=== PATIENT | female | born 1960 | race Caucasian/White ===

== ENCOUNTER 2019-06-03 10:30 | Inpatient (IN) | payer MEDICARE, OTHER ==
[~2019-06-03] VITALS: Ht 160 cm; Wt 72.1 kg
[~2019-06-03 10:30] MED LIST: CYCLOBENZAPRINE5 MG PO; FOSAMAX70 MG PO; NEXIUM40 MG PO; TYLENOL WITH C1 EACH PO; ULTRAM 50MG50 MG PO
--- OUTSIDE RECORDS SUMMARY | 2019-06-03 10:32 | XMS REPORT | Clinical Summary ---
Author Author [facility] Organization [facility] Address Unknown Phone Unavailable Care Team Providers Care Filing Machine Operator Name Role Phone Javier Peoples DO PCP Allergies Comments Active Allergy Reactions Severity Noted Date Iodine 05/03/2019 Diazepam 05/03/2019 Medications End Date Status Medication Sig Dispensed Refills Start Date 06/02/2019 dicyclomine (BENTYL) 20 Take 1 tablet 20 tablet 0 30/201 mg tablet (20 mg total) 9 by mouth 2 (two) times a day for 30 days. 05/10/2019 amoxicillin (AMOXIL) 500 Take 1 14 capsule 0 30/201 MG capsule capsule (500 9 mg total) by mouth 2 (two) times a day for 7 days. 05/08/2019 acetaminophen-codeine Take 1-2 15 tablet 0 05/03/201 (TYLENOL WITH CODEINE #3) tablets by 9 300-30 mg per tablet mouth every 6 (six) hours as needed for moderate pain for up to 5 days. Active Problems Not on file Encounters Care Team Description Date Type Specialty Levi Christopher MD Abdominal pain, unspecified abdominal location (Primary Dx); Elevated hemidiaphragm; Hiatal hernia; Atypical chest pain; Leukocytosis, unspecified type 05/03/2019 Emergency Emergency Medicine 05/03/2019 Travel after 06/02/2018 Social History Date Tobacco Use Types Packs/Day Years Used Current Every Day Smoker Cigarettes 2 Smokeless Tobacco: Never Used Drinks/Week oz/Week Comments Alcohol Use Never Alcohol Habits Answer Date Recorded How often do you have a drink containing alcohol? Never 05/03/2019 How many drinks containing alcohol do you have on Not asked a typical day when you are drinking? How often do you have six or more drinks on one Not asked occasion? Sex Assigned at Date Recorded Not on file Industry Job Start Date Occupation Not on file Not on file Not on file Travel End Travel History Travel Start No recent travel history available. Last Filed Vital Signs Reading Time Taken Comments Vital Sign 124/58 05/03/2019 7:09 PM CDT Blood Pressure 97 05/03/2019 7:09 PM CDT Pulse 37.3 C (99.2 F) 05/03/2019 7:09 PM CDT Temperature 22 05/03/2019 7:09 PM CDT Respiratory Rate 93% 05/03/2019 7:09 PM CDT Oxygen Saturation - - Inhaled Oxygen Concentration 76.2 kg (168 lb) 05/03/2019 12:18 PM CDT Weight 160 cm (5' 3") 05/03/2019 12:18 PM CDT Height 29.76 05/03/2019 12:18 PM CDT Body Mass Index Plan of Treatment Health Maintenance Due Date Last Done Comments CERVICAL CANCER SCREENING 1982 BREAST CANCER SCREENING 2011 COLONOSCOPY SCREENING 2011 SHINGLES VACCINES (#1) 2011 INFLUENZA VACCINE 05/05/2019 Procedures Comments Procedure Name Priority Date/Time Associated Diagnosis TROPONIN Timed 05/03/2019 4:31 PM CDT ECG ED PRELIMINARY Routine 05/03/2019 INTERPRETATION 2:18 PM CDT XR CHEST 1 VW STAT 05/03/2019 1:50 PM CDT ESTIMATED GFR STAT 05/03/2019 12:58 PM CDT B NATRIURETIC PEPTIDE STAT 05/03/2019 12:58 PM CDT TROPONIN STAT 05/03/2019 12:58 PM CDT COMPREHENSIVE METABOLIC STAT 05/03/2019 PANEL 12:58 PM CDT HC COMPLETE BLD COUNT STAT 05/03/2019 W/AUTO DIFF 12:58 PM CDT ECG 12-LEAD STAT 05/03/2019 12:51 PM CDT after 06/02/2018 Results * Troponin (05/03/2019 4:31 PM CDT) Only the most recent of 2 results within the time period is included. Troponin <0.006 0.000 - 0.040 ng/mL [facility] Comment: [facility] changed methodology effective: HOSPITAL 02/08/2019 at 10:00 am The new method has a 99th percentile cutoff of 0.040 ng/mL Specimen Plasma specimen Performing Organization Address City/[facility]/Zipcode Phone Number [facility] DEPARTMENT OF [address] [place] [address] PATHOLOGY AND GENOMIC MEDICINE [facility] [address] [facility] [place] [address] HOSPITAL * ECG ED Preliminary Interpretation - Not an Order (05/03/2019 2:18 PM CDT) Narrative Performed At Levi Christopher MD 05/04/2019 10:36 AM ECG ED Preliminary Interpretation - Not an Order Performed by: Levi Christopher MD Authorized by: Levi Christopher MD ECG reviewed by ED Physician in the absence of a official court interpreter: yes Rate: ECG rate:95 ECG rate assessment: normal Rhythm: Rhythm: sinus rhythm QRS: QRS axis:Normal QRS intervals:Normal ST segments: ST segments:Normal T waves: T waves: normal * XR Chest 1 Vw (05/03/2019 1:50 PM CDT) Specimen Narrative Performed At EXAMINATION:XR CHEST 1 VW [facility] CLINICAL HISTORY:Shortness of breath, chest pain COMPARISON:None. IMPRESSION: There is elevation of the left hemidiaphragm, potentially reflecting diaphragmatic eventration or paralysis. The lungs and pleural spaces are clear.The cardiomediastinal silhouette is within normal limits.There is no significant skeletal finding. [facility]-[id number] Procedure Note Hm Interface, Radiology Results Incoming - 05/03/2019 2:31 PM CDT EXAMINATION: XR CHEST 1 VW CLINICAL HISTORY: Shortness of breath, chest pain COMPARISON: None. IMPRESSION: There is elevation of the left hemidiaphragm, potentially reflecting diaphragmatic eventration or paralysis. The lungs and pleural spaces are clear. The cardiomediastinal silhouette is within normal limits. There is no significant skeletal finding. [facility]-[id number] Performing Organization Address City/[facility] Phone Number [facility] [address] [place] [address] * Estimated GFR (05/03/2019 12:58 PM CDT) Pathologist [facility] Estimated GFR 62 mL/min/1.73 m2 [place] Comment: [facility] G1 >=90 Normal or high G2 60-89Mildly decreased [id number] Mildly to moderately decreased [id number] Moderately to severely decreased G4 15-29Severely decreased G5 <15Kidney failure The eGFR was calculated using the Chronic Kidney Disease Epidemiology Collaboration (CKD-EPI) equation. Interpretation is based on recommendations of the National Kidney Foundation-Kidney Disease Outcomes Quality Initiative (NKF-KDOQI) published in 2014. Specimen Plasma specimen Performing Organization Address City/State/Zipcode Phone Number [facility] DEPARTMENT OF [address] [facility] [place] [address] PATHOLOGY AND GENOMIC MEDICINE [facility] [address] * CBC with platelet and differential (05/03/2019 12:58 PM CDT) [facility] WBC 13.5 (H) 4.2 - 11.0 k/uL [facility] RBC 4.34 4.04 - 5.86 m/uL [facility] HGB 14.0 11.5 - 15.3 g/dL [facility] HCT 42.0 34.0 - 45.0 % [facility] MCV 96.8 80.0 - 98.0 fL [facility] MCH 32.3 27.0 - 34.0 pg [facility] MCHC 33.3 31.5 - 36.5 g/dL [facility] RDW - SD 48.1 37.0 - 51.0 fL [facility] MPV 10.0 7.4 - 10.4 fL [facility] Platelet count 197 150 - 400 k/uL [facility] Nucleated RBC 0.00 /100 WBC [facility] Neutrophils 86.0 (H) 36.0 - 66.0 % [facility] Lymphocytes 9.2 (L) 24.0 - 44.0 % [facility] Monocytes 4.2 0.0 - 6.0 % [facility] Eosinophils 0.0 0.0 - 6.0 % [facility] Basophils 0.2 0.0 - 1.2 % [facility] Immature 0.4 0.0 - 1.0 % [place] granulocytes [facility] Specimen Blood Performing Organization Address City/State/[place] [address] PATHOLOGY AND GENOMIC MEDICINE [address] * B natriuretic peptide (05/03/2019 12:58 PM CDT) [facility] BNP 40 0 - 100 pg/mL [facility] Specimen Blood Performing Organization Address City/[facility] Services[facility] [place] [address] PATHOLOGY AND GENOMIC MEDICINE [address] * Comprehensive metabolic panel (05/03/2019 12:58 PM CDT) [facility] Sodium 130 (L) 135 - 150 mEq/L [facility] Potassium 4.3 3.5 - 5.0 mEq/L [facility] Chloride 92 (L) 98 - 112 mEq/L [facility] CO2 25 24 - 31 mmol/L [facility] Anion gap 13@ANIO 7 - 15 mEq/L [facility] BUN 12 7 - 18 mg/dL [facility] Creatinine 1.00 (H) 0.50 - 0.90 mg/dL [facility] Glucose 122 (H) 65 - 100 mg/dL [facility] Calcium 10.2 8.3 - 10.2 mg/dL [facility] Protein 8.2 6.3 - 8.3 g/dL [facility] Albumin 4.1 3.5 - 5.0 g/dL [facility] A/G ratio 1.0 0.7 - 3.8 [facility] Alkaline 120 (H) 0 - 104 U/L [place] phosphatase [facility] AST 22 10 - 35 U/L [facility] ALT 31 5 - 50 U/L [facility] Total bilirubin 1.0 0.2 - 1.2 mg/dL [facility] Specimen Plasma specimen Performing Organization Address City/State/Zipcode Phone Number [facility] DE[facility] OF [address] [place] [address] PATHOLOGY AND GENOMIC MEDICINE [facility] [address] [facility] [place] [id number] [facility] * ECG 12 lead (05/03/2019 12:51 PM CDT) Ventricular 95 [facility] MUSE rate Atrial rate 95 [facility] MUSE GA interval 132 [facility] QRSD interval 78 [facility] QT interval 344 [facility] QTC interval 432 [facility] P axis 1 69 [facility] QRS axis 1 31 [facility] M[facility] T wave axis 61 [facility] EKG impression Normal sinus rhythm-Normal [facility] MUSE ECG-No previous ECGs available- Specimen Narrative Performed At Performing Organization Address City/[facility]code Phone Number [facility] MUSE [address] [place] [address] after 06/02/2018 Insurance Type Payer Benefit Subscriber ID Effective Phone Address Plan / Dates Group HMO [employer] AMER[employer] xxxxxxxxx 2015-P DUAL resent OPTIONS STARPLUS MMP Advance Directives For more information, please contact: [phone] Patient Screening Tech Explanation Type Date Recorded Advance Directives, 05/03/2019 3:17 PM Living Will and Medical Power of Adult Education Manager
[2019-06-03 11:16] LABS: BASOPHILS % 0.1 % (0.0-1.0); HEMATOCRIT 37.9 % (34.2-44.1); HEMOGLOBIN 12.5 g/dL (12.0-16.0); LYMPHOCYTES # (AUTO) 0.4 (1.0-3.2); LYMPHOCYTES % 3.5 % (18.0-39.1); MEAN CORPUSCULAR HEMOGLOBIN 32.5 pg (28-32); MEAN CORPUSCULAR VOLUME 98.4 fL (81-99); MONOCYTES # (AUTO) 0.3 (0.2-0.8); MONOCYTES % 2.6 % (4.4-11.3); NEUTROPHILS # (AUTO) 10.7 (2.1-6.9); NEUTROPHILS % 93.5 % (38.7-80.0); PLATELET COUNT 317 x10e3/uL (140-360); RED BLOOD COUNT 3.85 x10e6/uL (3.6-5.1); RED CELL DISTRIBUTION WIDTH 13.6 % (11.7-14.4)
[2019-06-03 11:50] LABS: ALANINE AMINOTRANSFERASE 103 IU/L (0-55); ALBUMIN 3.5 g/dL (3.5-5.0); ALBUMIN/GLOBULIN RATIO 0.9 (0.8-2.0); ALKALINE PHOSPHATASE 636 IU/L (40-150); ANION GAP 17.2 mmol/L (8-16); BLOOD UREA NITROGEN 6 mg/dL (7-26); BUN/CREATININE RATIO 8 (6-25); CALCIUM 10.1 mg/dL (8.4-10.2); CARBON DIOXIDE 25 mmol/L (22-29); CHLORIDE 98 mmol/L (98-107); CREATININE, SERUM 0.78 mg/dL (0.57-1.11); EST GLOMERULAR FILTRATION RATE > 60 ML/MIN (60-); GLUCOSE 119 mg/dL (74-118); POTASSIUM 3.2 mmol/L (3.5-5.1); SODIUM 137 mmol/L (136-145)
--- NOTE | 2019-06-03 12:04 | Diagnostic Imaging Report ---
Chest, 1 view, 06/03/2019. History: Chest pain. Comparison: None available. Findings: The cardiomediastinal silhouette and pulmonary vasculature are within normal limits for a portable exam. There is elevation of the left hemidiaphragm with air-filled stomach noted. There is no focal consolidation or pleural effusion. There are no acute osseous or soft tissue abnormalities. Impression: No acute cardiopulmonary abnormality. Signed by: Kevon Hamlin on 06/03/2019 12:01 PM
[2019-06-03 13:11] LABS: BILIRUBIN,URINE SMALL (NEGATIVE); CLARITY,URINE SL CLOUDY (CLEAR); COLOR,URINE YELLOW (YELLOW); KETONES,URINE NEGATIVE (NEGATIVE); LEUKOCYTE ESTERASE ,URINE NEGATIVE (NEGATIVE); NITRITE,URINE POSITIVE (NEGATIVE); PROTEIN,URINE DIPSTICK 1+ (NEGATIVE); URINE UROBILINOGEN 1 mg/dL (0.2 - 1)
[2019-06-03 13:28] LABS: BACTERIA,URINE MODERATE /HPF; EPITHELIAL CELLS,URINE MODERATE /LPF
[2019-06-03 13:41] LABS: CREATINE KINASE 172 IU/L (29-168); MAGNESIUM 1.7 MG/DL (1.3-2.1)
[2019-06-03] MEDS ORDERED: PANTOPRAZOLE 40 MG 10ML VIAL IV ONE (15:02)
[2019-06-03 15:05] LABS: CHOL/HDL RATIO 3.9 (3.0-3.6)
[2019-06-03] MEDS: SODIUM CHLORIDE 0.9% 1000ML 1,000 ML IV SCH ×2 (16:30→20:01)
--- NOTE | 2019-06-03 16:46 | Diagnostic Imaging Report ---
CT of the abdomen and pelvis, without contrast, 06/03/2019. History: Abdominal pain, pancreatitis. Comparison: None available. Technique: Multidetector CT scanning of the abdomen and pelvis was performed from the level of the lung bases to the inferior pubic rami without intravenous or oral contrast. Coronal and sagittal multiplanar reformations were obtained. RADIATION DOSE: Total DLP: 340 mGy*cm Dose modulation, iterative reconstruction, and/or weight based adjustment of the mA/kV was utilized to reduce the radiation dose to as low as reasonably achievable. Discussion: Examination is limited without contrast. Lung bases: There is bilateral subsegmental atelectasis. There is elevation of the left hemidiaphragm without focal hernia. Abdomen: Cholecystectomy clips are present. The liver, biliary tree, spleen, pancreas, adrenal glands, and kidneys are unremarkable. There may be minimal fat stranding anterior to the pancreas. There is no evidence of fluid collection. The abdominal aorta is mildly calcified but within normal limits for size. There is no bowel dilatation. The appendix is visualized and is normal. There is no evidence of adenopathy or free fluid. Pelvis: The bladder, uterus, and adnexa are unremarkable. Tubal ligation clips are present bilaterally. There is no evidence of free fluid or adenopathy. Bones and soft tissues: Degenerative changes are present throughout the lumbar spine without evidence of lytic or sclerotic lesion. Left hip erika and screw are present. IMPRESSION: 1. Findings supportive of mild pancreatitis. No evidence of pseudocyst. 2. Status post cholecystectomy. Otherwise unremarkable noncontrast exam. Signed by: Kevon Hamlin on 06/03/2019 4:43 PM
[2019-06-03] MEDS ORDERED: SODIUM CHLORIDE 0.9% 1000ML 1,000 ML IV SCH (17:00)
[2019-06-03] MEDS ORDERED: HYDROMORPHONE 1MG/1ML INJ IV PRN (17:00)
[2019-06-03] MEDS ORDERED: ONDANSETRON HCL INJ 2MG/ML 2ML 2 MG/ML VIAL IV PRN (17:00)
--- OUTSIDE RECORDS SUMMARY | 2019-06-03 17:59 | XMS REPORT | Clinical Summary ---
Author Author [facility] Address Unknown Phone Unavailable Care Team Providers Care Gas Operations Analyst Name Role Phone Javier Peoples DO PCP [...] included. Troponin <0.006 0.000 - 0.040 ng/mL [facility] Comment: [facility] changed methodology effective: HOSPITAL 02/08/2019 at 10:00 am The new method has a 99th percentile cutoff of 0.040 ng/mL Specimen Plasma specimen Performing Organization Address City/[facility]/Zipcode Phone Number [facility] [place] [address] [place] [address] PATHOLOGY AND GENOMIC MEDICINE [facility] [address] [facility] [place] [address] HOSPITAL * ECG ED Preliminary Interpretation - Not an Order (05/03/2019 2:18 PM CDT) Narrative Performed At Levi Christopher MD 05/04/2019 10:36 AM ECG ED Preliminary Interpretation - Not an Order Performed by: Levi Christopher MD Authorized by: Levi Christopher MD ECG reviewed by ED Physician in the absence of a market reporter: yes Rate: ECG rate:95 ECG rate assessment: [...] normal limits.There is no significant skeletal finding. [id number] Procedure Note Hm Interface, Radiology Results Incoming - 05/03/2019 2:31 PM CDT EXAMINATION: XR CHEST 1 VW CLINICAL HISTORY: Shortness of breath, chest pain COMPARISON: None. IMPRESSION: There is elevation of the left hemidiaphragm, potentially reflecting diaphragmatic eventration or paralysis. The lungs and pleural spaces are clear. The cardiomediastinal silhouette is within normal limits. There is no significant skeletal finding. [id number] Performing Organization Address City/[facility] Phone Number [facility] [address] [place] [address] * Estimated GFR (05/03/2019 12:58 PM CDT) Pathologist [facility] Estimated GFR 62 mL/min/1.73 m2 [facility] Comment: [facility] G1 >=90 Normal or high G2 60-89Mildly decreased [id number] Mildly to moderately decreased S4l88-65 Moderately to severely decreased G4 15-29Severely decreased G5 <15Kidney failure The eGFR was calculated using the Chronic Kidney Disease Epidemiology Collaboration (CKD-EPI) equation. Interpretation is based on recommendations of the National Kidney Foundation-Kidney Disease Outcomes Quality Initiative (NKF-KDOQI) published in 2014. Specimen Plasma specimen Performing Organization Address City/State/Zipcode Phone Number [facility] [place] [address] [facility] [place] [address] PATHOLOGY AND GENOMIC MEDICINE [facility] [address] * CBC with platelet and differential (05/03/2019 12:58 PM CDT) [facility] WBC 13.5 (H) 4.2 - 11.0 k/uL [facility] RBC 4.34 4.04 - 5.86 m/uL [facility] HGB 14.0 11.5 - 15.3 g/dL [facility] HCT 42.0 34.0 - 45.0 % [facility] MCV 96.8 80.0 - 98.0 fL [facility] MCH 32.3 27.0 - 34.0 pg [facility] MCHC 33.3 31.5 - 36.5 g/dL [facility] RDW - SD 48.1 37.0 - 51.0 fL [facility] MPV 10.0 7.4 - 10.4 fL [facility] Platelet count 197 150 - 400 k/uL [facility] Nucleated RBC 0.00 /100 WBC [facility] Neutrophils 86.0 (H) 36.0 - 66.0 % [facility] Lymphocytes 9.2 (L) 24.0 - 44.0 % [facility] Monocytes 4.2 0.0 - 6.0 % [facility] Eosinophils 0.0 0.0 - 6.0 % [facility] Basophils 0.2 0.0 - 1.2 % [facility] Immature 0.4 0.0 - 1.0 % [facility] granulocytes [facility] Specimen Blood Performing Organization Address City/State/[place] [address] PATHOLOGY AND GENOMIC MEDICINE [address] * B natriuretic peptide (05/03/2019 12:58 PM CDT) [facility] BNP 40 0 - 100 pg/mL [facility] Specimen Blood Performing Organization Address City/[facility] [place] [address] PATHOLOGY AND GENOMIC MEDICINE [address] * Comprehensive metabolic panel (05/03/2019 12:58 PM CDT) [facility] Sodium 130 (L) 135 - 150 mEq/L [facility] Potassium 4.3 3.5 - 5.0 mEq/L [facility] Chloride 92 (L) 98 - 112 mEq/L [facility] CO2 25 24 - 31 mmol/L [facility] Anion gap 13@ANIO 7 - 15 mEq/L [facility] BUN 12 7 - 18 mg/dL [facility] Creatinine 1.00 (H) 0.50 - 0.90 mg/dL [facility] Glucose 122 (H) 65 - 100 mg/dL [facility] Calcium 10.2 8.3 - 10.2 mg/dL [facility] Protein 8.2 6.3 - 8.3 g/dL [facility] Albumin 4.1 3.5 - 5.0 g/dL [facility] A/G ratio 1.0 0.7 - 3.8 [facility] Alkaline 120 (H) 0 - 104 U/L [facility] phosphatase [facility] AST 22 10 - 35 U/L [facility] ALT 31 5 - 50 U/L [facility] Total bilirubin 1.0 0.2 - 1.2 mg/dL [facility] Specimen Plasma specimen Performing Organization Address City/State/Zipcode Phone Number [facility] OF [address] [place] [address] PATHOLOGY AND GENOMIC MEDICINE [facility] [address] [facility] [place] [id number] [facility] * ECG 12 lead (05/03/2019 12:51 PM CDT) Ventricular 95 [facility] MUSE rate Atrial rate 95 [facility] MUSE WA interval 132 [facility] M[facility] QRSD interval 78 [facility] M[facility] QT interval 344 [facility] M[facility] QTC interval 432 [facility] M[facility] P axis 1 69 [facility] M[facility] QRS axis 1 31 [facility] M[facility] T wave axis 61 [facility] EKG impression Normal sinus rhythm-Normal [facility] MUSE ECG-No previous ECGs available- Specimen Narrative Performed At Performing Organization Address City/[facility] Phone Number [facility] MUSE [address] [place] [address] after 06/02/2018 Insurance Type Payer Benefit Subscriber ID Effective Phone Address Plan / Dates Group HMO [employer] AMER[employer] xxxxxxxxx 2015-P DUAL resent OPTIONS STARPLUS MMP Advance Directives For more information, please contact: [phone] Patient Director Audience Marketing Explanation Type Date Recorded Advance Directives, 05/03/2019 3:17 PM Living Will and Medical Power of Armoured Car Escort
--- NOTE | 2019-06-03 19:05 | NUR ---
WALKING ROUNDS PERFORMED, RECEIVED PT LAYING SEMI FOWLERS IN BED, AAOX3, RR EVEN AND NON-LABORED, ON ROOM AIR. NO S/SX OF DISTRESS NOTED. LEFT PT LAYING SEMI FOWLERS IN BED, BED IN LOW LOCKED POSITION, SIDE RAILS UPX2, CALL LIGHT AND PHONE WITHIN REACH.
[2019-06-03] MEDS ORDERED: LISINOPRIL2.5 MG PO (19:06)
[2019-06-03] MEDS ORDERED: RANITIDINE HCL150 M1 PO (19:06)
[2019-06-03] MEDS ORDERED: ASPIRIN81 MG PO (19:06)
[2019-06-03] MEDS ORDERED: COMBIVENT RESPIM4 GM IH (19:06)
[2019-06-03] MEDS ORDERED: PANTOPRAZOLE SO40 MG PO (19:06)
[2019-06-03] MEDS ORDERED: DICYCLOMINE HCL20 MG PO (19:06)
[2019-06-03] MEDS ORDERED: PROAIR HFA INH8.5 GM BLADIN (19:06)
[2019-06-03] MEDS ORDERED: CETIRIZINE HCL10 M1 (19:06)
[2019-06-03] MEDS ORDERED: ATORVASTATIN CA10 MG PO (19:06)
[2019-06-03] MEDS: CEFTRIAXONE SOD 1 GM/NS 50 ML 50 ML IV SCH (20:01)
[2019-06-03 20:38] VITALS: BP 116/60
--- NOTE | 2019-06-03 20:38 | NUR ---
(R) AC IV PATENT BUT PT REPORTS SHE USES THIS ARM TO DO EVERYTHING AND THE PUMP WONT STOP BEEPING AND SHE CAN'T BE EXPECTED TO KEEP HER ARM STRAIGHT. NEW IV STARTED TO (L) FA 20G. FLUSHES WITHOUT DIFFICULTY, BLOOD RETURN NOTED.
[2019-06-03 20:42] VITALS: BP 116/60
[2019-06-03 21:57] VITALS: BP 116/60
[2019-06-04] VITALS (8 sets, daily range): BP systolic 121–142; BP diastolic 60–75
[2019-06-04 03:18] LABS: BASOPHILS % 0.1 % (0.0-1.0); EOSINOPHILS % 0.1 % (0.0-6.0); HEMATOCRIT 29.5 % (34.2-44.1); LYMPHOCYTES # (AUTO) 1.2 (1.0-3.2); LYMPHOCYTES % 13.8 % (18.0-39.1); MEAN CORPUSCULAR HEMOGLOBIN 32.5 pg (28-32); MEAN CORPUSCULAR HGB CONC 33.9 g/dL (31-35); MEAN CORPUSCULAR VOLUME 95.8 fL (81-99); MONOCYTES # (AUTO) 0.3 (0.2-0.8); MONOCYTES % 3.8 % (4.4-11.3); NEUTROPHILS # (AUTO) 6.8 (2.1-6.9); NEUTROPHILS % 81.8 % (38.7-80.0); PLATELET COUNT 253 x10e3/uL (140-360); RED BLOOD COUNT 3.08 x10e6/uL (3.6-5.1); RED CELL DISTRIBUTION WIDTH 13.7 % (11.7-14.4)
[2019-06-04 04:15] LABS: ANION GAP 12.3 mmol/L (8-16); BLOOD UREA NITROGEN 6 mg/dL (7-26); BUN/CREATININE RATIO 9 (6-25); CALCIUM 8.9 mg/dL (8.4-10.2); CARBON DIOXIDE 24 mmol/L (22-29); CHLORIDE 108 mmol/L (98-107); CREATININE, SERUM 0.66 mg/dL (0.57-1.11); EST GLOMERULAR FILTRATION RATE > 60 ML/MIN (60-); GLUCOSE 101 mg/dL (74-118); POTASSIUM 3.3 mmol/L (3.5-5.1); SODIUM 141 mmol/L (136-145)
[2019-06-04 04:21] LABS: ALBUMIN 2.6 g/dL (3.5-5.0); BILIRUBIN,DIRECT 1.5 mg/dL (0.0-0.5)
[2019-06-04 04:23] LABS: B-TYPE NATRIURETIC PEPTIDE2 74.9 pg/mL (0-100)
[2019-06-04] MEDS ORDERED: KETOROLAC TROMETHAMINE 30 MG/ML VIAL IV PRN (04:30)
[2019-06-04] MEDS ORDERED: MORPHINE SULFATE INJ 4 MG/ML INJ 1ML IV PRN (04:30)
[2019-06-04] MEDS ORDERED: HYDRALAZINE HCL 20 MG/ML VIAL IV PRN (04:45)
[2019-06-04] MEDS ORDERED: ACETAMINOPHEN 325 MG TAB PO PRN (04:45)
[2019-06-04 05:27] LABS: MAGNESIUM 1.8 MG/DL (1.3-2.1)
[2019-06-04] MEDS: CEFTRIAXONE SOD 1 GM/NS 50 ML 50 ML IV SCH ×2 (05:45→18:12)
[2019-06-04] MEDS: SODIUM CHLORIDE 0.9% 1000ML 1,000 ML IV SCH ×3 (05:45→20:42)
[2019-06-04 05:52] LABS: FREE T4 (FREE THYROXINE) 0.98 ng/dL (0.8-1.8)
[2019-06-04] MEDS ORDERED: PANTOPRAZOLE 40 MG 10ML VIAL IV SCH ×2 (06:00→09:00)
--- NOTE | 2019-06-04 06:07 | NUR ---
PAGE PLACED FOR MD TELLEZ CONCERNING CONSULTATION. WAITING FOR CALLBACK.
--- NOTE | 2019-06-04 06:58 | NUR ---
RECEIVED BEDSIDE SHIFT REPORT FROM CHANGE MANAGEMENT FACILITATOR RN, PT RESTING IN BED, IN STABLE CONDITION. CALL LIGHT WITHIN REACH. WILL CONTINUE TO MONITOR.
--- NOTE | 2019-06-04 07:00 | NUR ---
BEDSIDE SHIFT REPORT RECEIVED PT IN STABLE CONDITION , DENIES PAIN AT THIS TIME, CALL LIGHT IN REACH WILL CONTINUE TO MONITOR
[2019-06-04] MEDS: DICYCLOMINE HCL 20 MG TAB PO SCH ×2 (09:00→17:00)
[2019-06-04] MEDS: ASPIRIN 81 MG CHEW TAB PO SCH (09:00)
[2019-06-04] MEDS: LISINOPRIL 2.5 MG TAB PO SCH (09:00)
[2019-06-04] MEDS: IPRATROPIUM/ALBUTEROL SULFATE 4 GM INH INH SCH (09:00)
--- NOTE | 2019-06-04 15:25 | NUR ---
PAGED DR TELLEZ RE: PT REQUESTING ICE CHIPS AWAITING CALL BACK
--- NOTE | 2019-06-04 17:03 | NUR ---
PAGED DR TELLEZ AWAITING CALL BACK
--- NOTE | 2019-06-04 19:32 | NUR ---
WALKING ROUNDS PERFORMED, RECEIVED PT LAYING SEMI FOWLERS IN BED, AAOX3, RR EVEN AND NON-LABORED, ON ROOM AIR. PT REQUESTING ICE CHIPS EXPLAINED TO PT THAT THEY ARE NPO AND CAN NOT HAVE ANY BECAUSE OF PANCREATITIS DIAGNOSIS. PT REPORTS WHY HAS MD TELLEZ NOT COME TO SEE HER. EXPLAINED THAT MD TELLEZ PAGED MULTIPLE TIMES. PT ASKING IF A DIFFERENT DOCTOR COULD SEE HER. POC EXPLAINED THAT WILL DISCUSS GI CONSULT WITH MD ELIZALDE. LEFT PT LAYING SEMI FOWLERS IN BED, BED IN LOW LOCKED POSITION, SIDE RAILS UPX2, CALL LIGHT AND PHONE WITHIN REACH.
--- NOTE | 2019-06-04 19:41 | NUR ---
SPOKE WITH MD ELIZALDE CONCERNING GI CONSULT. MD Baljit LA CONSULTED.
--- NOTE | 2019-06-04 19:45 | NUR ---
SPOKE WITH MD Baljit LA CONCERNING CONSULTATION. NO NEW ORDERS RECEIVED.
[2019-06-04] MEDS: ATORVASTATIN 10 MG TAB PO SCH (19:54)
[2019-06-05] VITALS (7 sets, daily range): BP systolic 119–147; BP diastolic 63–77
--- NOTE | 2019-06-05 00:54 | Diagnostic Imaging Report ---
Exam: Left hip, single frontal view History: Prior to MRCP for planning Comparison: None. Findings: Jorge and screw construct related to operative fixation of a remote femoral neck/intertrochanteric fracture. No evidence of hardware loosening or failure. Femoral head projects appropriately over the acetabulum. Soft tissues unremarkable. Impression: Intact jorge and screw construct related to prior operative fixation of a proximal femoral fracture. Signed by: Dr. Himanshu Shetty M.D. on 06/05/2019 12:50 AM
[2019-06-05] MEDS: PANTOPRAZOLE 40 MG 10ML VIAL IV SCH ×3 (01:20→20:00)
[2019-06-05] MEDS: SODIUM CHLORIDE 0.9% 1000ML 1,000 ML IV SCH ×3 (03:27→22:38)
[2019-06-05 03:38] LABS: BASOPHILS % 0.1 % (0.0-1.0); EOSINOPHILS % 0.6 % (0.0-6.0); HEMATOCRIT 28.4 % (34.2-44.1); HEMOGLOBIN 9.9 g/dL (12.0-16.0); LYMPHOCYTES # (AUTO) 1.5 (1.0-3.2); LYMPHOCYTES % 21.2 % (18.0-39.1); MEAN CORPUSCULAR HEMOGLOBIN 33.8 pg (28-32); MEAN CORPUSCULAR HGB CONC 34.9 g/dL (31-35); MEAN CORPUSCULAR VOLUME 96.9 fL (81-99); MONOCYTES # (AUTO) 0.4 (0.2-0.8); MONOCYTES % 5.2 % (4.4-11.3); NEUTROPHILS # (AUTO) 5.2 (2.1-6.9); NEUTROPHILS % 72.5 % (38.7-80.0); PLATELET COUNT 232 x10e3/uL (140-360); RED BLOOD COUNT 2.93 x10e6/uL (3.6-5.1); RED CELL DISTRIBUTION WIDTH 13.8 % (11.7-14.4)
[2019-06-05 03:50] LABS: ALANINE AMINOTRANSFERASE 50 IU/L (0-55); ALBUMIN 2.4 g/dL (3.5-5.0); ALBUMIN/GLOBULIN RATIO 0.7 (0.8-2.0); ALKALINE PHOSPHATASE 397 IU/L (40-150); ANION GAP 14.3 mmol/L (8-16); BLOOD UREA NITROGEN 5 mg/dL (7-26); BUN/CREATININE RATIO 9 (6-25); CALCIUM 8.5 mg/dL (8.4-10.2); CARBON DIOXIDE 20 mmol/L (22-29); CHLORIDE 109 mmol/L (98-107); CREATININE, SERUM 0.55 mg/dL (0.57-1.11); EST GLOMERULAR FILTRATION RATE > 60 ML/MIN (60-); GLUCOSE 75 mg/dL (74-118); POTASSIUM 3.3 mmol/L (3.5-5.1); SODIUM 140 mmol/L (136-145)
[2019-06-05] MEDS: CEFTRIAXONE SOD 1 GM/NS 50 ML 50 ML IV SCH ×2 (05:57→18:04)
[2019-06-05] MEDS ORDERED: POTASSIUM CHLORIDE 20 MEQ TAB CR PO STA (07:00)
--- NOTE | 2019-06-05 07:03 | NUR ---
received shift change report from manufacturing supervisor 2nd shift nurse, pt resting in bed, respirations even and nonlabored, no s/s distress noted, call light within reach, will continue to monitor.
[2019-06-05] MEDS ORDERED: CEFDINIR300 MG PO (07:05)
[2019-06-05] MEDS ORDERED: SODIUM CHLORIDE 0.9% 100 ML 100 ML ONE (08:57)
[2019-06-05] MEDS ORDERED: GADOBENATE DIMEGLUMINE 1 ML IV ONE (08:58)
[2019-06-05] MEDS: LISINOPRIL 2.5 MG TAB PO SCH (09:00)
[2019-06-05] MEDS: IPRATROPIUM/ALBUTEROL SULFATE 4 GM INH INH SCH (09:00)
[2019-06-05] MEDS: DICYCLOMINE HCL 20 MG TAB PO SCH ×2 (09:00→17:00)
[2019-06-05] MEDS: ASPIRIN 81 MG CHEW TAB PO SCH (09:00)
--- NOTE | 2019-06-05 09:20 | NUR ---
clin tech arrived at pt bedside, taking pt to MRI. pt left in stable condition.
--- NOTE | 2019-06-05 10:35 | NUR ---
pt arrived from MRI, in stable condition. will continue to monitor.
--- NOTE | 2019-06-05 15:57 | Diagnostic Imaging Report ---
History: ^poss choledocholithiasis ^Y Comparison: CT abdomen/pelvis 06/03/2019. Technique: Multiplanar, multisequence images of the abdomen were obtained before and after the administration of 15 cc of gadolinium. 3D volume rendered reformation images of the biliary tree were performed. Findings: Images are motion degraded. MRCP: Intrahepatic ducts: No dilatation, beading or narrowing. Common Hepatic Duct: Measures 13 mm. No dilatation, beading or narrowing. Cystic Duct: Grossly normal Common Bile Duct: Measures approximately 7 mm. There is surrounding of the shoulders of the distal common bile duct at the ampulla. No intraluminal filling defect to suggest choledocholithiasis Pancreas Duct: No dilatation. Gallbladder: Absent. Liver: Mild steatosis. Calculated hepatic fat fraction is 6.1%. No evidence of mass. Spleen: Normal size and signal. No mass Pancreas: Normal T1 and T2 signal. No mass. Kidneys: No hydronephrosis. No mass Adrenal glands: No mass Lymph nodes: No enlarged abdominal or retroperitoneal lymph nodes. Bowel: Stomach and visualized portions of the small bowel and large bowel are normal in diameter with normal wall thickness. Peritoneum/Retroperitoneum: No free fluid or fluid collection. Pelvis: Visualized pelvic structures are normal. Lung bases: Eventration of the left diaphragm. Visualized portion of the mediastinum is normal. Bones: Normal marrow signal. No focal osseous lesions. Soft tissues: Unremarkable IMPRESSION: 1. Motion degraded exam. 2. Status post cholecystectomy with prominence of the common hepatic duct and common bile duct likely due to reservoir effect. No evidence of choledocholithiasis. 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 3. Mild steatosis. Thank you for your referral. Signed by: Dr. Ai Zuleta MD on 06/06/2019 11:47 PM
--- NOTE | 2019-06-05 16:00 | NUR ---
paged dr shelton re: [facility] results awaiting call back
--- NOTE | 2019-06-05 17:51 | NUR ---
paged dr fareed shelton re: [facility] results awaiting call back
--- NOTE | 2019-06-05 18:20 | NUR ---
spoke with dr shelton, new orders given
--- NOTE | 2019-06-05 18:25 | NUR ---
pts diet advanced to clears as per orders,tolerating well
--- NOTE | 2019-06-05 19:28 | NUR ---
report given to airplane tube builder rn, pt left in stable condition, denies pain call light in reach will continue to monitor
[2019-06-05] MEDS: ATORVASTATIN 10 MG TAB PO SCH (20:00)
[2019-06-06] MEDS ORDERED: LORATADINE 10 MG TAB PO PRN
[2019-06-06 00:39] VITALS: BP 128/67
--- NOTE | 2019-06-06 03:00 | NUR ---
(R) AC IV NOTED TO BE LEAKING. IV DISCONTINUED. CATHETER TIP INTACT. PRESSURE AND DRESSING APPLIED.
[2019-06-06 03:39] LABS: BASOPHILS % 0.2 % (0.0-1.0); EOSINOPHILS # (AUTO) 0.1 (0.0-0.4); EOSINOPHILS % 1.2 % (0.0-6.0); HEMATOCRIT 28.4 % (34.2-44.1); HEMOGLOBIN 9.6 g/dL (12.0-16.0); LYMPHOCYTES # (AUTO) 1.9 (1.0-3.2); LYMPHOCYTES % 29.8 % (18.0-39.1); MEAN CORPUSCULAR HEMOGLOBIN 32.8 pg (28-32); MEAN CORPUSCULAR HGB CONC 33.8 g/dL (31-35); MEAN CORPUSCULAR VOLUME 96.9 fL (81-99); MONOCYTES # (AUTO) 0.4 (0.2-0.8); MONOCYTES % 5.6 % (4.4-11.3); NEUTROPHILS # (AUTO) 4.1 (2.1-6.9); PLATELET COUNT 258 x10e3/uL (140-360); RED BLOOD COUNT 2.93 x10e6/uL (3.6-5.1); RED CELL DISTRIBUTION WIDTH 13.5 % (11.7-14.4)
[2019-06-06 03:53] LABS: ALANINE AMINOTRANSFERASE 39 IU/L (0-55); ALBUMIN 2.6 g/dL (3.5-5.0); ALKALINE PHOSPHATASE 377 IU/L (40-150); ANION GAP 11.2 mmol/L (8-16); BILIRUBIN,DIRECT 0.5 mg/dL (0.0-0.5); BLOOD UREA NITROGEN < 5 mg/dL (7-26); CARBON DIOXIDE 22 mmol/L (22-29); CHLORIDE 109 mmol/L (98-107); CREATININE, SERUM 0.59 mg/dL (0.57-1.11); EST GLOMERULAR FILTRATION RATE > 60 ML/MIN (60-); GLUCOSE 75 mg/dL (74-118); LIPASE 24 U/L (8-78); POTASSIUM 3.2 mmol/L (3.5-5.1); SODIUM 139 mmol/L (136-145)
[2019-06-06 03:57] LABS: BUN/CREATININE RATIO 8 (6-25)
[2019-06-06 04:32] LABS: FERRITIN 149.95 ng/mL (4.63-204.00)
[2019-06-06 05:28] VITALS: BP 126/67
[2019-06-06] MEDS: SODIUM CHLORIDE 0.9% 1000ML 1,000 ML IV SCH (05:43)
[2019-06-06] MEDS: CEFTRIAXONE SOD 1 GM/NS 50 ML 50 ML IV SCH (05:43)
--- NOTE | 2019-06-06 07:08 | NUR ---
RECEIVED PATIENT RESTING IN BED NO SIGNS OF DISTRESS. BED LOW, WHEELS LOCKED, SIDE RAILS X2. CALL LIGHT IN REACH WILL CONTINUE TO MONITOR.
[2019-06-06 08:00] VITALS: BP 120/72
[2019-06-06] MEDS: IPRATROPIUM/ALBUTEROL SULFATE 4 GM INH INH SCH (08:00)
[2019-06-06] MEDS: DICYCLOMINE HCL 20 MG TAB PO SCH (09:00)
[2019-06-06] MEDS: ASPIRIN 81 MG CHEW TAB PO SCH (09:16)
[2019-06-06] MEDS: PANTOPRAZOLE 40 MG 10ML VIAL IV SCH (09:16)
[2019-06-06] MEDS: LISINOPRIL 2.5 MG TAB PO SCH (09:16)
[2019-06-06 09:49] VITALS: BP 120/72
[2019-06-06 11:47] LABS: FOLATE 13.7 ng/mL (7.0-15.4)
[2019-06-06 11:55] VITALS: BP 118/67
[2019-06-06] MEDS ORDERED: POTASSIUM CHLORIDE 20 MEQ TAB CR PO ONE (13:15)
--- NOTE | 2019-06-06 13:21 | NUR ---
removed patients iv, catheter tip intact and pressure dressing applied
--- NOTE | 2019-06-06 13:31 | NUR ---
patient discharged from facility. patient gathered all personal belongings, discharge instructions and follow up information. left unit in wheelchair and went home via private auto. no signs of distress when leaving facility.
--- NOTE | 2019-06-07 03:35 | Discharge Summary ---
PRIMARY CARE PHYSICIAN: Judd Gage. CONSULTING PHYSICIANS: 1. Dr. Rodrigo You. 2. Dr. Nikos Ramos. CHIEF COMPLAINT: Pancreatitis. HOSPITAL COURSE: This is a 58-year-old female, who got admitted for complaints of epigastric pain associated with nausea that has been intermittent since about one month. She denies vomiting, dysuria or hematuria, no fever or chills reported. Her chest x-ray on arrival was negative, CT of the abdomen showed mild pancreatitis. MRCP is negative. The patient also got evaluated by Gastroenterology. Her urine culture showed Klebsiella and she received IV Rocephin. PHYSICAL EXAMINATION: VITAL SIGNS: Temperature 96.8, heart rate 70, blood pressure 120/72, respiratory rate is 16, and oxygen saturation is 95. GENERAL: No acute distress. NECK: Supple. LUNGS: Clear to auscultation. CARDIOVASCULAR: Regular rate and rhythm. ABDOMEN: Soft and nontender. EXTREMITIES: Bilateral lower extremities with no edema. NEUROLOGIC: The patient is alert and oriented x3. LABORATORY DATA: Her sodium 139, potassium is 3.2, chloride is 109, CO2 is 22, BUN is 5, creatinine is 0.59, glucose is 75, and WBC 6.42, hemoglobin is 9.6, hematocrit is 28.4, and platelets 258. Her lipase is 24. MEDICATIONS: She is going home on: 1. Omnicef 300 mg p.o. q.12 for five days. Her home medications are: 1. Albuterol inhaler daily. 2. Aspirin 81 mg p.o. daily. 3. Atorvastatin 10 mg at bedtime. 4. Cetirizine 10 mg daily. 5. Bentyl 20 mg twice daily. 6. Combivent inhaler daily. 7. Lisinopril 2.5 mg p.o. daily. 8. Protonix 40 mg p.o. daily. 9. Ranitidine 150 mg p.o. daily. ADMISSION/DISCHARGE DIAGNOSES: 1. Mild pancreatitis, which has resolved and her current lipase is 26. 2. Urinary tract infection: The patient is going home on oral antibiotics. 3. Chronic obstructive pulmonary disease. The patient is advised to continue her nebs and Combivent. 4. Hypertension. She is on low dose of lisinopril 2.5 mg daily, monitor daily blood pressure at home. 5. Hyperlipidemia for which she is on Lipitor. FOLLOWUP: Follow up with primary care physician in 1-2 weeks. DISCHARGE CONDITION: The patient upon discharge in fair condition. MD JARON Hayden/BRISSA /[id number]
== END 2019-06-06 13:33 | disposition home or self-care (01) | DRG 871 ==
LOC: ER 10:30 → ERHOLD 17:00 → MED/SURG 18:40
PROVIDERS: ADMIT Internal Medicine; ATTEND Internal Medicine
DX: A41.9 Sepsis, unspecified organism (principal); K85.00 Idiopathic acute pancreatitis without necrosis or infection; N30.01 Acute cystitis with hematuria; I10 Essential (primary) hypertension; I25.10 Atherosclerotic heart disease of native coronary artery without angina pectoris; J44.9 Chronic obstructive pulmonary disease, unspecified; E78.5 Hyperlipidemia, unspecified; K44.9 Diaphragmatic hernia without obstruction or gangrene; Z86.718 Personal history of other venous thrombosis and embolism; Z88.5 Allergy status to narcotic agent; Z91.041 Radiographic dye allergy status; Z82.49 Family history of ischemic heart disease and other diseases of the circulatory system; Z90.49 Acquired absence of other specified parts of digestive tract; K21.9 Gastro-esophageal reflux disease without esophagitis; Z72.0 Tobacco use; E87.6 Hypokalemia; D64.9 Anemia, unspecified; B96.1 Klebsiella pneumoniae [K. pneumoniae] as the cause of diseases classified elsewhere
CPT/HCPCS: 36415; 71045; 74176; 74183; 80048; 80053; 80061; 80076; 81001; 82150; 82550; 82553; 82607; 82728; 82746; 83036; 83540; 83690; 83735; 83880; 84439; 84443; 84466; 84484; 85025; 85045; 87086; 87186; 93005; 99285; J0696; J7030